=== PATIENT | male | born 1980 | race Caucasian/White ===

== ENCOUNTER 2017-02-15 12:43 | Emergency (ER) | payer OTHER ==
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
[2017-02-15 14:23] VITALS: BP 123/74
== END 2017-02-15 14:23 | disposition home or self-care (01) ==
LOC: ER 12:43
DX: S01.01XA Laceration without foreign body of scalp, initial encounter (principal); S16.1XXA Strain of muscle, fascia and tendon at neck level, initial encounter; S00.93XA Contusion of unspecified part of head, initial encounter; R42 Dizziness and giddiness; R11.0 Nausea; M54.2 Cervicalgia; X58.XXXA Exposure to other specified factors, initial encounter
CPT/HCPCS: 70450; 72125; 99284

== ENCOUNTER → 2017-04-07 | Outpatient (CLI) | payer OTHER ==
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
== END ==
LOC: RAD 11:32
PROVIDERS: ATTEND Family Medicine
DX: S52.501A Unspecified fracture of the lower end of right radius, initial encounter for closed fracture (principal); X58.XXXA Exposure to other specified factors, initial encounter; Y93.9 Activity, unspecified; Y92.9 Unspecified place or not applicable; Y99.9 Unspecified external cause status

== ENCOUNTER 2017-05-04 17:41 | Emergency (ER) | payer OTHER ==
[2017-05-04] MEDS ORDERED: LIDOCAINE 1% INJ-PF (10 MG/ML) 30 ML SDV INJ ONE (18:44)
[2017-05-04] MEDS ORDERED: HYDROCODONE/ACETAMINOPHEN 5-325 MG TABLET PO ONE (18:44)
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
[2017-05-04] MEDS ORDERED: OXYCODONE-ACETAMINOPHEN 5-325 MG TABLET PO ONE ×2 (20:33→21:43)
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
[2017-05-04 21:49] VITALS: BP 127/82
== END 2017-05-04 21:49 | disposition home or self-care (01) ==
LOC: ER 17:41
PROC: 2W3CX1Z Immobilization of Right Lower Arm using Splint (ICD-10-PCS; principal; 2017-05-04)
PROC: 0HQ1XZZ Repair Face Skin, External Approach (ICD-10-PCS; 2017-05-04)
DX: S52.501A Unspecified fracture of the lower end of right radius, initial encounter for closed fracture (principal); S01.412A Laceration without foreign body of left cheek and temporomandibular area, initial encounter; M25.511 Pain in right shoulder; Y04.2XXA Assault by strike against or bumped into by another person, initial encounter; F17.200 Nicotine dependence, unspecified, uncomplicated
CPT/HCPCS: 99284; 73030; 73110; 70450; 70486; 72125; 12013; L3908; J3490